=== PATIENT | female | born 1960 | race Caucasian/White ===

== ENCOUNTER → 2018-02-08 | Outpatient (CLI) | payer MEDICARE, SELFPAY ==
[~2018-02-08] MED LIST: AMPDEX15CR PO; AMPDEX30CR PO; CLIM.025TP PO; ESTR2 PO; FLUO10 PO; FURO20 PO; HYDACE10B PO; LIDO5TP TOP; METH10 PO; Percocet 5-3251 EACH PO
== END ==
LOC: LAB SHORT 15:55 → LAB SRC 15:55
DX: R19.7 Diarrhea, unspecified (principal)
CPT/HCPCS: 87015; 87045; 87046; 87177; 87205; 87209; 87329; 87493; 87899

== ENCOUNTER 2019-01-26 10:43 | Day surgery (SDC) | payer MEDICARE, OTHER ==
[~2019-01-26] VITALS: Ht 162.6 cm; Wt 98.9 kg
[~2019-01-26 10:43] MED LIST changes: +DULO60 PO; +HYDHCL25 PO; +LOPE2C; +Omeprazole20 M1 PO
[2019-01-26] MEDS ORDERED: Nortriptyline H25 MG (11:23)
[2019-01-26] MEDS ORDERED: BRINTELLIX10 MG (11:23)
[2019-01-26] MEDS ORDERED: ZOLP5 (11:23)
--- NOTE | 2019-01-26 13:05 | NUR ---
01/26/19 0721 Silvana Doshi PATIENT VERY SLEEPY BUT WAS ABLE TO ANSWER QUESTIONS APPROPRIATELY. DISCHARGE INSTRUCTIONS DISCUSSED AND ALL QUESTIONS ANSWERED. SHE TOLD ME SHE WAS READY TO GO HOME AND WOULD SLEEP SOME MORE WHEN SHE GOT THERE. WHEEL CHAIR TO CAR. PATIENT WAS ABLE TO TRANSFER TO CHAIR FROM BED THEN FROM CHAIR TO CAR WITH MINIMAL HELP. DURING THE RECOVERY PROCESS PATIENT WAS HAVING DISCOMFORT IN HER LEFT EYE. SHE DESCRIBED IT FEELING LIKE THERE WAS SOMETHING IN HER EYE. I INSTRUCTED HER TO CALL DR URIARTE'S OFFICE IF THIS PROBLEM CONTINUED. PATIENT AND BOTH VERBALIZED UNDERSTANDING
== END 2019-01-26 13:00 | disposition home or self-care (01) ==
LOC: ORSCSDS 10:43
PROVIDERS: Student in an Organized Health Care Education/Training Program
PROC: 0DB68ZX Excision of Stomach, Via Natural or Artificial Opening Endoscopic, Diagnostic (ICD-10-PCS; principal; 2019-01-26 12:00)
PROC: 0DB58ZX Excision of Esophagus, Via Natural or Artificial Opening Endoscopic, Diagnostic (ICD-10-PCS; principal; 2019-01-26 12:00)
DX: K21.9 Gastro-esophageal reflux disease without esophagitis (principal); R19.7 Diarrhea, unspecified; K31.7 Polyp of stomach and duodenum; R10.9 Unspecified abdominal pain; K22.2 Esophageal obstruction; F17.210 Nicotine dependence, cigarettes, uncomplicated; G47.33 Obstructive sleep apnea (adult) (pediatric); M79.7 Fibromyalgia; E66.01 Morbid (severe) obesity due to excess calories; Z68.37 Body mass index [BMI] 37.0-37.9, adult
CPT/HCPCS: 88305; 88342; J2250; J2704; J7120

== ENCOUNTER 2020-12-12 09:12 | Day surgery (SDC) | payer BC, MEDICARE ==
[~2020-12-12] VITALS: Ht 162.6 cm; Wt 102.3 kg
[~2020-12-12 09:12] MED LIST changes: +BRINTELLIX10 MG; +Nortriptyline H25 MG; +ZOLP5
[2020-12-12] MEDS ORDERED: BUSP10 (09:43)
== END 2020-12-12 11:05 | disposition home or self-care (01) ==
LOC: ORSCSDS 09:12
PROVIDERS: Student in an Organized Health Care Education/Training Program
PROC: 0DB68ZX Excision of Stomach, Via Natural or Artificial Opening Endoscopic, Diagnostic (ICD-10-PCS; principal; 2020-12-12 10:30)
DX: R10.13 Epigastric pain (principal); K29.70 Gastritis, unspecified, without bleeding; K21.9 Gastro-esophageal reflux disease without esophagitis; Z98.84 Bariatric surgery status; F41.9 Anxiety disorder, unspecified; F32.9 Major depressive disorder, single episode, unspecified; G47.33 Obstructive sleep apnea (adult) (pediatric); E66.01 Morbid (severe) obesity due to excess calories; Z68.38 Body mass index [BMI] 38.0-38.9, adult; Z79.899 Other long term (current) drug therapy
CPT/HCPCS: 88305; 88342; J2704; J7120

== ENCOUNTER 2023-10-20 08:56 | Day surgery (SDC) | payer BC, MEDICARE ==
[2023-10-20] VITALS (10 sets, daily range): BP systolic 128–202; BP diastolic 65–120
[~2023-10-20] VITALS: Ht 162.6 cm; Wt 93.5 kg
[~2023-10-20 08:56] MED LIST changes: +BRINTELLIX10 MG PO; +BUSP10; +DICL75ER; +Estradiol0.5 MG PO; +HYDPAM25 PO; +Norco 10-325 T1 EACH PO; +Premarin0.3 MG PO
--- NOTE | 2023-10-20 10:32 | NUR ---
10/20/23 1032 Pippa Fischer HISTORY, CHART, MEDICATIONS AND ALLERGIES REVIEWED BEFORE START OF PROCEDURE. PATIENT CONFIRMS NPO STATUS AND AGREES WITH SCHEDULED PROCEDURE. 3-LEAD EKG REVIEWED WITH PHYSICIAN PRIOR TO START OF PROCEDURE. MONITOR INTACT WITH CONTINUOUS PULSE OXIMETRY,CAPNOGRAPHY, 3-LEAD EKG, INTERMITTENT BP. SUPPLEMENTAL O2 TO BE TITRATED THROUGHOUT PROCEDURE TO MAINTAIN O2 SATURATION ABOVE 90%. PATIENT DETERMINED TO BE ASA APPROPRIATE FOR PROPOFOL SEDATION PRIOR TO START OF PROCEDURE BY .
--- NOTE | 2023-10-20 11:29 | NUR ---
Patient up to Ambulate independently. Gait steady. Discharge instructions reviewed with patient. Patient verbalizes understanding. Copy given to patient to take home, WELL FAMILY. Patient States Post-Procedure ride home has been arranged. Discharged via wheelchair to private car for ride home.
== END 2023-10-20 11:29 | disposition home or self-care (01) ==
LOC: ORSCMMR 08:56 → ORD 10:00 → ORSCMMR 10:00
PROVIDERS: Internal Medicine Gastroenterology
PROC: 0DJ08ZZ Inspection of Upper Intestinal Tract, Via Natural or Artificial Opening Endoscopic (ICD-10-PCS; principal; 2023-10-20 10:00)
DX: R13.14 Dysphagia, pharyngoesophageal phase (principal); R11.10 Vomiting, unspecified; Z98.84 Bariatric surgery status; Z79.899 Other long term (current) drug therapy
CPT/HCPCS: J2250; J2704; J7120

== ENCOUNTER 2023-10-25 10:01 | Day surgery (SDC) | payer BC, MEDICARE ==
[2023-10-25] VITALS (16 sets, daily range): BP systolic 115–214; BP diastolic 50–81
[~2023-10-25] VITALS: Ht 162.6 cm; Wt 92.3 kg
--- NOTE | 2023-10-25 11:00 | NUR ---
Ambulatory in Day Surgery History, Chart, Medications and Allergies reviewed before start of procedure.Lungs clear T/O to Auscultation. Patient confirms NPO status and agrees with scheduled surgery. Patient reports completing Chlorhexadine shower X2 prior to admission to hospital.Surgical site prepped with 2% Chlorhexidine cloth wipe.
--- NOTE | 2023-10-25 12:42 | NUR ---
10/25/23 1242 Cassandra Kothari SPINAL NERVE BLOCK COMPLETED BY DR. MCWILLIAMS UPON ENTRY TO OR. PT TOLERATED WELL.
--- NOTE | 2023-10-25 14:10 | NUR ---
ARRIVAL TO SURGICAL UNIT ALERT & PLEASANT. ASSESSMENT CHARTED. DENIES N/V. SNACKS & WATER GIVEN. FAMILY AT SIDE.
[2023-10-25] MEDS ORDERED: ZOLP10 PO (16:13)
[2023-10-26 05:35] VITALS: BP 116/65
[2023-10-26 05:58] LABS: BASOPHILS ABSOLUTE AUTO 0.07 K/mm3 (0.00-0.23); BASOPHILS PERCENT AUTO 1 % (0-2); EOSINOPHILS ABSOLUTE AUTO 0.13 K/mm3 (0.00-0.68); EOSINOPHILS PERCENT AUTO 1 % (0-6); Hematocrit 35.9 % (33.0-51.0); Hemoglobin 11.3 g/dL (11.5-16.0); IMMATURE GRAN ABSOLUTE AUTO 0.04 K/mm3 (0.00-0.10); IMMATURE GRAN PERCENT AUTO 0 % (0-1); LYMPHOCYTES ABSOLUTE AUTO 1.09 K/mm3 (0.84-5.20); LYMPHOCYTES PERCENT AUTO 10 % (21-46); MONOCYTES ABSOLUTE AUTO 0.95 K/mm3 (0.16-1.47); MONOCYTES PERCENT AUTO 9 % (4-13); Mean Corpuscular HGB Conc 31.5 g/dL (31.5-36.5); Mean Corpuscular Volume 92 fL (80-100); Mean Platelet Volume 9.4 fL (9.1-12.4); NEUTROPHILS ABSOLUTE AUTO 8.82 K/mm3 (1.96-9.15); NEUTROPHILS PERCENT AUTO 79 % (41-73); Platelet Count 298 K/mm3 (150-400); RDW Coefficient Variation 15.3 % (11.7-14.2); RDW Standard Deviation 51.8 fL (35.1-46.3); Red Blood Cell Count 3.89 M/mm3 (3.80-5.20)
[2023-10-26 06:14] LABS: Calcium, Blood 8.5 mg/dL (8.5-10.1); Creatinine, Blood 0.59 mg/dL (0.40-1.00); Magnesium, Blood 2.2 mg/dL (1.6-2.4); Potassium, Blood 3.6 mmol/L (3.5-5.5)
--- NOTE | 2023-10-26 07:22 | NUR ---
POD 1 S/P R TKA. PT VSS T/O NIGHT. DRESSING CDI. PEDAL PULSES AND CAP REFILL WNL. PT REP N/T RESOLVED, DOES REP RLE STILL FEELS "HEAVY" THIS AM. PAIN MGD PER EMAR W/REP RELIEF. PT BETTIE PO, DID REP MILD NAUSEA THIS AM, ZOFRAN GIVEN W/REP RELIEF. PT IS VOIDING URINE W/O DIFFICULTY. PT UP OOB W/FWW+1 ASSIST. PLAN TO MOBILIZE W/PT AND DC HOME WHEN CLEARED.
[2023-10-26 07:51] VITALS: BP 154/81
[2023-10-26] MEDS ORDERED: ASPI81CH PO (08:48)
[2023-10-26] MEDS ORDERED: ACET500 PO (08:48)
[2023-10-26] MEDS ORDERED: OXYC5 PO (08:49)
--- NOTE | 2023-10-26 10:20 | NUR ---
DISCHARGE PT HAS CLEARED THERAPY. PAIN REASONABLY CONTROLLED & REPORTS HAVING A PAIN PLAN AT HOME. EATING, DRINKING, & VOIDING WELL. DENZEL & POLAR PACK SENT w/ PT. ESCORTED OUT VIA W/C.
== END 2023-10-26 11:00 | disposition home or self-care (01) ==
LOC: ORSCMMR 10:01 → ORD 11:30 → ORSCMMR 12:45 → ORD 12:45 → SURS 14:02 → ORD 15:30 → ORSCMMR 10-26 11:00
PROVIDERS: Orthopaedic Surgery
PROC: 0SRC0JA Replacement of Right Knee Joint with Synthetic Substitute, Uncemented, Open Approach (ICD-10-PCS; principal; 2023-10-25 12:45)
DX: M17.11 Unilateral primary osteoarthritis, right knee (principal); Z68.35 Body mass index [BMI] 35.0-35.9, adult; G47.33 Obstructive sleep apnea (adult) (pediatric); Z87.891 Personal history of nicotine dependence; M79.7 Fibromyalgia; Z79.899 Other long term (current) drug therapy
CPT/HCPCS: 36415; 73560-RT; 80048; 83735; 85025; 97110; 97116; 97162; A9270; C1713; C1776; J0171; J0690; J0735; J1885; J2250; J2405; J2704; J2795; J3010; J7120

== ENCOUNTER 2024-03-29 11:52 | Inpatient (IN) | payer BC, MEDICARE ==
[~2024-03-29] VITALS: Ht 162.6 cm; Wt 92.0 kg
[~2024-03-29 11:52] MED LIST changes: +ACET500 PO; +ASPI81CH PO; -HYDPAM25 PO; +Norco 5-325 Ta1 EACH PO; +OXYC5 PO; +ZOLP10 PO
[2024-03-29 13:59] LABS: BASOPHILS ABSOLUTE AUTO 0.07 K/mm3 (0.00-0.23); BASOPHILS PERCENT AUTO 1 % (0-2); EOSINOPHILS ABSOLUTE AUTO 0.19 K/mm3 (0.00-0.68); EOSINOPHILS PERCENT AUTO 3 % (0-6); Hematocrit 41.8 % (33.0-51.0); Hemoglobin 12.9 g/dL (11.5-16.0); IMMATURE GRAN ABSOLUTE AUTO 0.02 K/mm3 (0.00-0.10); IMMATURE GRAN PERCENT AUTO 0 % (0-1); LYMPHOCYTES ABSOLUTE AUTO 1.76 K/mm3 (0.84-5.20); LYMPHOCYTES PERCENT AUTO 26 % (21-46); MONOCYTES ABSOLUTE AUTO 0.43 K/mm3 (0.16-1.47); MONOCYTES PERCENT AUTO 6 % (4-13); Mean Corpuscular HGB 27.1 pg (26.0-34.0); Mean Corpuscular HGB Conc 30.9 g/dL (31.5-36.5); Mean Corpuscular Volume 88 fL (80-100); Mean Platelet Volume 10.1 fL (9.1-12.4); NEUTROPHILS ABSOLUTE AUTO 4.28 K/mm3 (1.96-9.15); NEUTROPHILS PERCENT AUTO 63 % (41-73); Platelet Count 430 K/mm3 (150-400); RDW Standard Deviation 55.3 fL (35.1-46.3); Red Blood Cell Count 4.76 M/mm3 (3.80-5.20); White Blood Cell Count 6.75 K/mm3 (4.00-11.30)
[2024-03-29 14:17] LABS: Albumin, Blood 3.4 g/dL (3.4-5.0); Albumin/Globulin Ratio 0.7 (0.8-1.8); Bilirubin, Total 0.4 mg/dL (0.1-1.0); Bun/Creatinine Ratio 16.2 (12.0-20.0); Calcium, Blood 9.5 mg/dL (8.5-10.1); Creatinine, Blood 0.86 mg/dL (0.40-1.00); Globulin, Blood 4.6 g/dL (2.2-4.0); Potassium, Blood 4.6 mmol/L (3.5-5.5)
[2024-03-29] MEDS ORDERED: LORazepam 1 MG Tab PO ONE (15:55)
[2024-03-29] MEDS ORDERED: Aspirin 325 MG Tab PO ONE (18:35)
[2024-03-29] MEDS ORDERED: Acetaminophen 325 MG TABLET PO PRN (20:45)
[2024-03-29] MEDS ORDERED: NS 1,000 ML IV SCH (20:45)
[2024-03-29] MEDS ORDERED: Ondansetron HCl 2 MG / ML 2ML Vial IV PRN (20:45)
[2024-03-29] MEDS ORDERED: HydrALAZINE HCl 20 MG / ML 1ML Vial IV PRN (22:05)
[2024-03-29 22:33] VITALS: BP 179/76
[2024-03-29] MEDS ORDERED: ZOLP6.25 PO (22:50)
[2024-03-29] MEDS ORDERED: BRINTELLIX10 MG PO (22:52)
[2024-03-29] MEDS ORDERED: Diclofenac Sod100 MG PO (22:55)
[2024-03-29] MEDS ORDERED: DICL75ER PO (22:56)
[2024-03-30 03:42] VITALS: BP 152/77
[2024-03-30 05:24] LABS: Cholesterol 226 mg/dL (50-200); HDL Cholesterol 75 mg/dL (>39); LDL/HDL RATIO 1.7; Low Density Lipoprotein Chol 125 mg/dL (0-110); Triglycerides 129 mg/dL (30-160); Very Low Density Lipoprot Chol 25 mg/dL (6-32)
--- NOTE | 2024-03-30 05:42 | NUR ---
SHIFT SUMMARY PT ARRIVED FROM ED AND FAMILY AT BEDSIDE WHILE PT WAS SETTLED IN. ORIENTED TO ROOM. NO C/O PAIN OR FEELING SOB. LEFT SIDED WEAKNESS NOTED ESPECIALLY IN LEFT HAND. NS INFUSING @ 100ML/HR PER EMAR. PT'S BP ELEVATED UPON COMING TO MEDICAL FLOOR BUT MD ALLOWING PERMISIVE HTN AT THIS TIME WITH PARAMETERS FOR HYDRALAZINE PRN. A&OX4 AND PLEASANT. BED IN LOWEST POSITION AND CALL LIGHT IN REACH.
[2024-03-30 07:36] VITALS: BP 124/68
[2024-03-30] MEDS ORDERED: Atorvastatin 40 MG Tab PO SCH (09:00)
[2024-03-30] MEDS ORDERED: Enoxaparin 40 MG/0.4 ML SYR SC SCH (09:00)
[2024-03-30] MEDS ORDERED: Aspirin 81 MG Chew PO SCH (09:00)
[2024-03-30] MEDS ORDERED: Cyanocobalamin 1000 MCG/ML 1ML Vial IM SCH (10:00)
[2024-03-30] MEDS ORDERED: Clotrimazole 10 MG Troche MT SCH (13:00)
--- NOTE | 2024-03-30 13:13 | NUR ---
PATIENT REPORTS BACK 8/10 BACK PAIN. HOME Rx FOR NORCO 10/325 1 PO Q4-6H PRN PAIN. WONDERING IF SHE COULD TAKE HER OWN OR GET Rx FOR THIS TO BE ADMINISTERED HERE. REQUESTED SHE NOT TAKE HER OWN AND LEFT VOICEMAIL FOR DR. GIL REQUESTING TO RESUME HOME MEDS.
[2024-03-30] MEDS ORDERED: HYDROcodone 5-APAP 325 TAB PO PRN (13:30)
[2024-03-30] MEDS ORDERED: HydrOXYzine Pamoate 25 MG Cap PO PRN (13:30)
[2024-03-30 15:08] VITALS: BP 142/69
[2024-03-30] MEDS ORDERED: ATOR40TA PO (15:16)
[2024-03-30] MEDS ORDERED: CLOT10 MT (15:16)
[2024-03-30] MEDS ORDERED: ASPI81CH PO (15:17)
--- NOTE | 2024-03-30 16:14 | NUR ---
DISCHARGE SUMMARY: A&Ox4. PLEASANT AND COOPERATIVE WITH CARE. CALLS APPROPRIATELY AND IS ABLE TO COMMUNICATE NEEDS EFFECTIVELY. AMBULATING INDEPENDENTLY WITH WALKER. WORKED WITH PT TODAY. DISCHARGED HOME WITH HOME HEALTH ORDERS AND ORDERS TO FOLLOW-UP WITH PCP. LEFT UNIT WITH DISCHARGE PACKET AND ALL BELONGINGS.
[2024-03-30] MEDS ORDERED: Zolpidem Tartrate 5 MG Tab PO SCH (21:00)
[2024-03-31] MEDS ORDERED: Misc. Tablet PO SCH (09:00)
== END 2024-03-30 16:20 | disposition home health service (06) | DRG 65 ==
LOC: ER 11:52 → MEDS 20:41
PROVIDERS: Nurse Practitioner Acute Care; Student in an Organized Health Care Education/Training Program; ADMIT Student in an Organized Health Care Education/Training Program
DX: I63.81 Other cerebral infarction due to occlusion or stenosis of small artery (principal); G81.94 Hemiplegia, unspecified affecting left nondominant side; Q21.12 Patent foramen ovale; E78.5 Hyperlipidemia, unspecified; E53.8 Deficiency of other specified B group vitamins; M50.321 Other cervical disc degeneration at C4-C5 level; M50.322 Other cervical disc degeneration at C5-C6 level; F32.A Depression, unspecified; F17.210 Nicotine dependence, cigarettes, uncomplicated; E66.9 Obesity, unspecified; F41.9 Anxiety disorder, unspecified; G47.00 Insomnia, unspecified; Z90.5 Acquired absence of kidney; Z98.84 Bariatric surgery status; Z85.528 Personal history of other malignant neoplasm of kidney; Z88.8 Allergy status to other drugs, medicaments and biological substances; Z88.2 Allergy status to sulfonamides; Z98.890 Other specified postprocedural states; Z79.899 Other long term (current) drug therapy; Z79.891 Long term (current) use of opiate analgesic; Z79.82 Long term (current) use of aspirin; Z88.1 Allergy status to other antibiotic agents; Z68.35 Body mass index [BMI] 35.0-35.9, adult
CPT/HCPCS: 36415; 70551; 72141; 80053; 80061; 83036; 83735; 85025; 93005; 93010; 93306; 93880; 97110; 97116; 97161; 99285-25; A9270; J1650; J3420; J7030

== ENCOUNTER 2025-09-27 06:44 | Day surgery (SDC) | payer BC, MEDICARE ==
[~2025-09-27] VITALS: Ht 162.6 cm; Wt 97.5 kg
[~2025-09-27 06:44] MED LIST changes: +ATOR40TA PO; +CLOT10 MT; +DICL75ER PO; +Diclofenac Sod100 MG PO; +ZOLP6.25 PO
[2025-09-27] MEDS ORDERED: CLIMARA1 EACH (07:13)
[2025-09-27] MEDS ORDERED: DODEX1000 MCG/3 (07:13)
[2025-09-27] MEDS ORDERED: BRINTELLIX20 MG (07:14)
[2025-09-27 09:44] VITALS: BP 157/78
== END 2025-09-27 08:55 | disposition home or self-care (01) ==
LOC: ORSCSDS 06:44
PROVIDERS: Internal Medicine Gastroenterology
PROC: 0DJ08ZZ Inspection of Upper Intestinal Tract, Via Natural or Artificial Opening Endoscopic (ICD-10-PCS; principal; 2025-09-27 08:00)
DX: R11.2 Nausea with vomiting, unspecified (principal); R13.10 Dysphagia, unspecified; Z98.84 Bariatric surgery status; I10 Essential (primary) hypertension; E78.5 Hyperlipidemia, unspecified; Z86.73 Personal history of transient ischemic attack (TIA), and cerebral infarction without residual deficits; F32.A Depression, unspecified; E66.9 Obesity, unspecified; Z68.36 Body mass index [BMI] 36.0-36.9, adult; Z85.53 Personal history of malignant neoplasm of renal pelvis; Z79.82 Long term (current) use of aspirin; Z79.899 Other long term (current) drug therapy; Z87.891 Personal history of nicotine dependence
CPT/HCPCS: J2704; J7120